=== PATIENT | female | born 1995 | race Caucasian/White ===

== ENCOUNTER 2018-01-25 16:30 | Emergency (ER) | payer BC ==
[2018-01-25 17:02] VITALS: BP 116/76
--- NOTE | 2018-01-25 18:45 | UC ---
Skin Complaint HPI - HPI Summary HPI Summary: Patient presents with 2 months of itchy, irritated rash in her bilateral axillae. She does shave but states the rash is just outside the area where the hair is. She went to see a provider at [facility] and was given an antifungal and steroid cream. She states she has been using the antifungal with no noticeable benefit. She states the steroid cream did seem helpful initially but she ran out. She has not been wearing deodorant and is only shaving occasionally. No fever. - History of Current Complaint Chief Complaint: UCUpperExtremity Time Seen by Provider: 01/25/18 17:36 Stated Complaint: RASH UNDER ARMS Hx Obtained From: Patient Hx Last Menstrual Period: 11/21/17 Onset/Duration: Gradual Onset, Lasting Weeks, Still Present Timing: Constant Onset Severity: Moderate Current Severity: Moderate Pain Intensity: 6 Pain Scale Used: 0-10 Numeric Location: Discrete - BILATERAL AXILLAE Character: Pruritus, Redness Aggravating Factor(s): Touch Alleviating Factor(s): Nothing Associated Signs & Symptoms: Positive: Rash - Allergy/Home Medications Allergies/Adverse Reactions: Allergies Allergy/AdvReac Type Severity Reaction Status Date / Time latex Allergy Itching Verified 01/25/18 17:03 Home Medications: Home Medications Gabapentin CAP(*) [Neurontin 100 mg CAP(*)] 100 mg PO Q8HR 01/25/18 [History Confirmed 01/25/18] Mirtazapine TAB* [Remeron TAB*] 15 mg PO BEDTIME 01/25/18 [History Confirmed 01/07] Review of Systems Constitutional: Negative Skin: Rash Respiratory: Negative Cardiovascular: Negative Gastrointestinal: Negative All Other Systems Reviewed And Are Negative: Yes PMH/Surg Hx/FS Hx/Imm Hx Previously Healthy: Yes - Family History Known Family History: Negative: Hypertension - Social History Alcohol Use: Rare Substance Use Type: None Smoking Status (MU): Former Smoker Physical Exam Triage Information Reviewed: Yes Appearance: Well-Appearing, No Pain Distress, Well-Nourished Vital Signs: Initial Vital Signs Temp 98 F 01/25/18 16:57 Pulse 71 01/25/18 16:57 Resp 16 01/25/18 16:57 BP 116/76 01/25/18 16:57 Pulse Ox 100 01/25/18 16:57 Vital Signs Reviewed: Yes Eyes: Positive: Conjunctiva Clear ENT: Positive: Hearing grossly normal Neck: Positive: Supple Respiratory: Positive: No respiratory distress, No accessory muscle use Cardiovascular: Positive: Pulses Normal Abdomen Description: Positive: Soft Musculoskeletal: Positive: No Edema Neurological: Positive: Alert Psychological: Positive: Age Appropriate Behavior Skin: Positive: rashes - ERYTHEMATOUS, FLAT MACULOPAPULAR RASH BILATERAL AXILLAE RIGHT>LEFT. MOSTLY CONCENTRATED JUST OUTSIDE OF AREA OF HAIR GROWTH Course/Dx - Diagnoses Provider Diagnoses: DERMATITIS - BILATERAL AXILLAE Discharge - Sign-Out/Discharge Documenting (check all that apply): Discharge/Admit/Transfer - Discharge Plan Condition: Stable Disposition: HOME Prescriptions: Clobetasol Propionate 0.05 % TOPICAL BID PRN #1 tube PRN Reason: Itching Mupirocin 2% CREAM* [Bactroban 2% CREAM*] 1 applic TOPICAL TID #1 tube predniSONE TAB* [Deltasone 20 MG TAB*] 40 mg PO DAILY #10 tab Patient Education Materials: Dermatitis (ED) Referrals: No Primary Care Phys,NOPCP [Primary Care Provider] - Additional Instructions: YOUR RASH LOOKS INFLAMMATORY IN NATURE. TRY STEROID CREAM TO THE AREA TWICE DAILY. WILL ALSO GIVE ORAL STEROIDS TO HELP CALM THE REACTION SYSTEMICALLY. KEEP THE AREA COOL, CLEAN AND DRY YOU'RE ABLE. DO NOT APPLY DEODORANTS, LOTION OR PERFUMES. DO NOT SHAVE WHILE YOU'RE HAVING SYMPTOMS. USE ALL NATURAL BABY WIPES TO CLEANSE THE AREA GENTLY THROUGHOUT THE DAY IF NEEDED. TAKE OTC ANTIHISTAMINE DAILY (CLARITIN (LORATADINE), ZYRTEC (CETIRIZINE) OR GUMARO (FEXOFENADINE)). AVOID HEAT AND HOT WATER ABLE THIS WILL WORSEN THE INFLAMMATION. IF YOUR SYMPTOMS DO NOT IMPROVE YOU MAY BENEFIT FROM EVALUATION BY A INVENTORY CONTROL CLERK WHEN YOU GET HOME TO [place]. - Billing Disposition and Condition Condition: STABLE Disposition: Home
== END 2018-01-25 18:40 | disposition home or self-care (01) ==
LOC: UCEAST 16:30
DX: L30.9 Dermatitis, unspecified (principal); Z91.040 Latex allergy status; Z87.891 Personal history of nicotine dependence
CPT/HCPCS: 99202; G0463